=== PATIENT | male | born 1955 | race Caucasian/White ===

== ENCOUNTER 2020-11-25 11:49 | Emergency (ER) | payer OTHER ==
[~2020-11-25] VITALS: Ht 175.3 cm; Wt 100.0 kg
[2020-11-25 12:14] VITALS: BP 167/86
--- NOTE | 2020-11-25 12:14 | PHYS DOC ---
General Adult EDM: Chief Complaint: BACK PAIN OR INJURY HPI: HPI: Patient is a 65-year-old male coming in for left back pain. Patient was moving a table in the process of trying to turn over when he felt onset of pain. Says he went to go sit down and pain has been getting worse. Says it occasionally r adiates down his left leg. Denies any other falls or injury. Patient states he takes a blood thinner but does not know what the name of the medication is. Review of Systems: Review of Systems: All other systems within normal limits except for as noted in the HPI Physical Exam: PE: Constitutional: Well developed, well nourished, no acute distress, non-toxic appearance. [] HENT: Normocephalic, atraumatic, bilateral external ears normal, nose normal. [] Eyes: PERRLA, conjunctiva normal, no discharge. [] Neck: No rigidity, supple, no stridor. [] Cardiovascular: Regular rate and rhythm, brisk cap refill [] Lungs & Thorax: Non labored symmetric respirations, no tachypnea or respiratory distress [] Abdomen: Soft, nondistended. Skin: Warm, dry, no erythema, no rash. [] Back: Unremarkable, no step-off or deformities. No point spinal tenderness. Tenderness over lower thoracicupper lumbar left back. Tense paraspinous muscle on the left. Extremities: No deformities, range of motion grossly intact, no lower extremity edema [] Neurologic: Alert and oriented X 3, no focal deficits noted. [] Psychologic: Affect normal, judgement normal, mood normal. [] EKG: EKG: [] Radiology/Procedures: Radiology/Procedures: [] Heart Score: C/O Chest Pain: No Risk Factors: Risk Factors: DM, Current or recent (<one month) smoker, HTN, HLP, family history of CAD, obesity. Risk Scores: Score 0 - 3: 2.5% MACE over next 6 weeks - Discharge Home Score 4 - 6: 20.3% MACE over next 6 weeks - Admit for Clinical Observation Score 7 - 10: 72.7% MACE over next 6 weeks - Early Invasive Strategies Course & Med Decision Making: Course & Med Decision Making Pertinent Labs and Imaging studies reviewed. (See chart for details) [] Eloina Disclaimer: Dragahmet Disclaimer: This electronic medical record was generated, in whole or in part, using a voice recognition dictation system. Departure Departure: Impression: Primary Impression: Back muscle spasm Disposition: HOME / SELF CARE / HOMELESS Condition: STABLE Referrals: PCP,JHON (PCP) Patient Instructions: Back Pain, Adult Scripts Hydrocodone Bit/Acetaminophen (HYDROCODONE-APAP 5-325 ) 1 Each Tablet 1 TAB PO PRN Q6HRS PRN for PAIN for 3 Days, #10 TAB 0 Refills Caution: this medication can make you drowsy. Do not drive or operate heavy machinery when using this medication. Prov: ANA MARIA ADEN MD 11/25/20 Cyclobenzaprine Hcl (CYCLOBENZAPRINE HCL) 5 Mg Tablet 1 TAB PO TID PRN for MUSCLE SPASMS for 5 Days, #15 TAB Prov: ANA MARIA ADEN MD 11/25/20 ANA MARIA ADEN MD Nov 25, 2020 12:14
[2020-11-25] MEDS ORDERED: ORPHENADRINE CITRATE 60 MG/2 ML VIAL. IM ONE (12:15)
[2020-11-25] MEDS ORDERED: HYDR-2155 PO (12:50)
[2020-11-25] MEDS ORDERED: CYCL5TAB PO (12:50)
== END 2020-11-25 13:15 | disposition home or self-care (01) ==
LOC: ER 11:49
DX: M62.830 Muscle spasm of back (principal)
CPT/HCPCS: 96372; 99284; J2360; J3010